=== PATIENT | male | born 1980 | race Caucasian/White ===

== ENCOUNTER → 2018-12-27 | Outpatient (CLI) | payer BC ==
--- NOTE | 2018-12-27 17:57 | RADIOLOGY REPORT (SQ) ---
EXAM DESCRIPTION: MRI CERVICAL SPINE WITHOUT COMPLETED DATE/TIME: 12/27/2018 4:48 pm REASON FOR STUDY: M54.2 CERVICALGIA M54.2 CERVICALGIA COMPARISON: None. TECHNIQUE: Sagittal and Axial imaging includes T1, T2, STIR and gradient echo sequences. LIMITATIONS: None. FINDINGS: ALIGNMENT: Normal. VERTEBRAE: Intact. BONE MARROW: Normal. No marrow replacement or reactive changes. DISCS: Normal. No significant abnormal signal or loss of height. HARDWARE: None in the spine. CORD AND BASE OF BRAIN: Normal in size and signal intensity. SOFT TISSUES: No soft tissue masses. C1-C2: No significant spinal stenosis. C2-C3: No significant spinal stenosis or exit foraminal stenosis. C3-C4: No significant spinal stenosis or exit foraminal stenosis. C4-C5: Shallow broad-based disc/osteophyte complex with no central canal or foraminal stenosis. C5-C6: Left paracentral disc/ osteophyte complex that slightly deforms the left side of the spinal co rd. There is narrowing of the left neural foramen. C6-C7: No significant spinal stenosis or exit foraminal stenosis. C7-T1: No significant spinal stenosis or exit foraminal stenosis. UPPER THORACIC: Incompletely imaged. No significant spinal stenosis or exit foraminal stenosis. OTHER: No other significant finding. IMPRESSION: There are disc/osteophyte complexes at C4-5 and C5-6. The most prominent findings are a t C5-6 with there is a left paracentral disc/ osteophyte complex that deforms the left side of the sp inal cord and there is narrowing of the left neural foramen. TECHNICAL DOCUMENTATION: JOB ID: [id number] [email or web address] Rights Reserved Reading location - IP/workstation name: [email or web address]
== END ==
LOC: RAD 15:08
PROVIDERS: ATTEND Orthopaedic Surgery Sports Medicine
DX: M54.2 Cervicalgia (principal)
CPT/HCPCS: 72141